=== PATIENT | male | born 1985 | race Caucasian/White ===

== ENCOUNTER 2016-12-08 20:35 | Emergency (ER) | payer SELFPAY ==
[2016-12-08 20:49] VITALS: BP 147/99
[2016-12-08] MEDS ORDERED: SULFAMETHOXAZOLE/TRIMETHOPRIM 800-160 MG TABLET PO ONE (23:38)
--- NOTE | 2016-12-08 23:39 | ER Document Report ---
ED Skin Rash/Insect Bite/Abscs - General Chief Complaint: Abscess Stated Complaint: POSSIBLE ABSCESS Time Seen by Provider: 12/08/16 23:09 Notes: Patient is a 31-year-old male presents emergency department complaining of left groin tenderness, redness, drainage. Patient states that over the past 2 months he has had one area that can continues to drain on and off. States he has never followed up with his primary care. Does admit to history of previous septic arthritis of the right knee requiring incision and drainage, IV antibiotics for MRSA Otherwise he denies any other medical problems. TRAVEL OUTSIDE OF THE [place] IN LAST 30 DAYS: No Past Medical History - Social History Smoking Status: Never Smoker Family History: Reviewed & Not Pertinent Patient has suicidal ideation: No Patient has homicidal ideation: No Renal/ Medical History: Denies: Hx Peritoneal Dialysis Review of Systems - Review of Systems Constitutional: No symptoms reported Skin: See HPI -: Yes All other systems reviewed and negative Physical Exam - Vital signs Vitals: Temp Pulse Resp BP Pulse Ox 97.9 F 73 18 147/99 H 96 12/08/16 20:48 12/08/16 20:48 12/08/16 20:48 12/08/16 20:48 12/08/16 20:48 - General General appearance: Appears well, Alert In distress: None - Cardiovascular Pulses: Normal: Femoral, Dorsalis pedis Normal capillary refill: Yes - Extremities General lower extremity: Nontender, Normal color, Normal ROM, Normal strength, Normal temperature, Normal weight bearing - Skin Irregularity with: Swelling, Tenderness, Weeping, Other - Area noted within the left groin that is consistent with cellulitis. No evidence of abscess Course - Re-evaluation Re-evalutation: 12/09/16 02:00 Patient is a 31-year-old male is hemodynamic stable, no acute distress afebrile. Presentation today is consistent with cellulitis of the inner thigh. It patient educated on use of warm compresses and will cover for MRSA given history. Patient given strict return precautions and is to follow-up with primary care. Patient agrees with plan - Vital Signs Vital signs: Temp Pulse Resp BP Pulse Ox 97.9 F 73 18 147/99 H 96 12/08/16 20:48 12/08/16 20:48 12/08/16 20:48 12/08/16 20:48 12/08/16 20:48 Discharge - Discharge Clinical Impression: Cellulitis Qualifiers: Site of cellulitis: other site Qualified Code(s): L03.818 - Cellulitis of other sites Condition: Good Disposition: HOME, SELF-CARE Instructions: MRSA Cellulitis ([facility]), Trimethoprim-Sulfa ([facility]) Prescriptions: Sulfamethoxazole/Trimethoprim [Bactrim Ds Tablet] 1 each PO BID #10 tablet Forms: Elevated Blood Pressure
== END 2016-12-08 23:45 | disposition home or self-care (01) ==
LOC: ER 20:35
DX: L03.314 Cellulitis of groin (principal)
CPT/HCPCS: 99282